=== PATIENT | male | born 1995 | race African-American/Black ===

== ENCOUNTER 2016-06-11 13:01 | Emergency (ER) | payer OTHER ==
[~2016-06-11] VITALS: Ht 167.6 cm; Wt 60.0 kg
[~2016-06-11 13:01] MED LIST: ZOFR4TAB3 SL
[2016-06-11 13:03] VITALS: BP 130/67; PULSE 84; RESP 20; TEMP 98.6; O2SAT 99
--- NOTE | 2016-06-11 13:05 | PD ---
Physical Exam Time Seen by Provider: 13:04 Narrative 21 year old male presents for evaluation of nausea/vomiting which started last night. Seen at triage desk. Awaiting bed placement . Data Data Last Documented VS Vital Signs Date Time Temp Pulse Resp B/P Pulse Ox O2 Delivery O2 Flow Rate FiO2 06/11/16 13:03 98.6 84 20 130/67 99 Room Air [facility] Medical Record Reviewed: Yes Supervised Visit with SHILPA: Yes Mike Burkett Jun 11, 2016 13:05
[2016-06-11] MEDS ORDERED: SODIUM CHLOR 0.9% 1000 ML INJ 1,000 ML IV SCH (13:13)
[2016-06-11 13:15] VITALS: BP 123/81; PULSE 80; RESP 16; O2SAT 97
[2016-06-11] MEDS ORDERED: ONDANSETRON HCL 4 MG/2 ML VIAL IVP ONE (13:15)
--- NOTE | 2016-06-11 13:16 | PD ---
HPI Chief Complaint: GI Complaint Time Seen by Provider: 13:09 Travel History International Travel<30 days: No Contact w/Intl Traveler<30days: No Traveled to known affect area: No History of Present Illness HPI 21-year-old male complains of nausea vomiting. Patient states the symptoms started last night. Patient denies abdominal pain. Patient denies any headache. Patient denies any chest pain or shortness of breath. Patient denies any coughing congestion. Patient denies any dysuria or frequency. Patient denies fever chills. Patient denies any back pain. Patient denies any alcohol or drug abuse. [facility] Social History Alcohol Use: No Tobacco Use: No Substance Use: No Allergies-Medications (Allergen,Severity, Reaction): Coded Allergies: No Known Allergies (Unverified , 06/11/16) Reported Meds & Prescriptions Reported Meds & Active Scripts Active No Active Prescriptions or Reported Medications Review of Systems General / Constitutional: No: Fever Eyes: No: Visual changes HENT: No: Headaches Cardiovascular: No: Chest Pain or Discomfort Respiratory: No: Shortness of Breath Gastrointestinal: Positive: Nausea, Vomiting, No: Abdominal Pain Genitourinary: No: Dysuria Musculoskeletal: No: Pain Skin: No Rash Neurologic: No: Weakness Psychiatric: No: Depression Endocrine: No: Polydipsia Hematologic/Lymphatic: No: Easy Bruising Physical Exam Narrative GENERAL: Well-nourished, well-developed patient. SKIN: Focused skin assessment warm/dry. HEAD: Normocephalic. EYES: No scleral icterus. No injection or drainage. NECK: Supple, trachea midline. No JVD or lymphadenopathy. CARDIOVASCULAR: Regular rate and rhythm without murmurs, gallops, or rubs. RESPIRATORY: Breath sounds equal bilaterally. No accessory muscle use. GASTROINTESTINAL: Abdomen soft, non-tender, nondistended. MUSCULOSKELETAL: No cyanosis, or edema. BACK: Nontender without obvious deformity. No CVA tenderness. Neurologic exam normal. Data Data Last Documented VS Vital Signs Date Time Temp Pulse Resp B/P Pulse Ox O2 Delivery O2 Flow Rate FiO2 06/11/16 13:15 80 16 123/81 97 Room Air 06/11/16 13:03 98.6 Orders Complete Blood Count With Diff (06/11/16 13:13) Comprehensive Metabolic Panel (06/11/16 13:13) Lipase (06/11/16 13:13) Iv Access Insert/Monitor (06/11/16 13:13) Ecg Monitoring (06/11/16 13:13) Oximetry (06/11/16 13:13) Ondansetron Inj (Zofran Inj) (06/11/16 13:15) Sodium Chlor 0.9% 1000 Ml Inj (Ns 1000 M (06/11/16 13:13) Labs Laboratory Tests Test 06/11/16 13:50 White Blood Count 13.8 TH/MM3 Red Blood Count 4.91 MIL/MM3 Hemoglobin 15.8 GM/DL Hematocrit 45.6 % Mean Corpuscular Volume 92.8 FL Mean Corpuscular Hemoglobin 32.2 PG Mean Corpuscular Hemoglobin 34.7 % Concent Red Cell Distribution Width 12.3 % Platelet Count 190 TH/MM3 Mean Platelet Volume 8.8 FL Neutrophils (%) (Auto) 87.2 % Lymphocytes (%) (Auto) 7.5 % Monocytes (%) (Auto) 4.9 % Eosinophils (%) (Auto) 0.1 % Basophils (%) (Auto) 0.3 % Neutrophils # (Auto) 12.0 TH/MM3 Lymphocytes # (Auto) 1.0 TH/MM3 Monocytes # (Auto) 0.7 TH/MM3 Eosinophils # (Auto) 0.0 TH/MM3 Basophils # (Auto) 0.0 TH/MM3 CBC Comment DIFF FINAL Differential Comment Sodium Level 140 MEQ/L Potassium Level 4.7 MEQ/L Chloride Level 108 MEQ/L Carbon Dioxide Level 26.7 MEQ/L Anion Gap 5 MEQ/L Blood Urea Nitrogen 7 MG/DL Creatinine 1.03 MG/DL Estimat Glomerular Filtration 112 ML/MIN Rate Random Glucose 108 MG/DL Calcium Level 9.7 MG/DL Total Bilirubin 1.2 MG/DL Aspartate Amino Transf 27 U/L (AST/SGOT) Alanine Aminotransferase 19 U/L (ALT/SGPT) Alkaline Phosphatase 54 U/L Total Protein 7.4 GM/DL Albumin 4.2 GM/DL Lipase 61 U/L [facility] Medical Decision Making Medical Screen Exam Complete: Yes Emergency Medical Condition: Yes Interpretation(s) 1453 PM. CBC WBC 13.8. 87 neutrophil. CMP within normal limit. Differential Diagnosis Differential diagnosis including gastroenteritis, gastritis, PUD, pancreatitis, cholecystitis, colitis, UTI, pyelonephritis, nephrolithiasis, electrolyte imbalance, dehydration. Narrative Course 21-year-old male with nausea vomiting since last night. Normal saline solution 1 L IV bolus. Zofran 4 mg IV. Diagnosis Primary Impression: Gastroenteritis Patient Instructions: General Instructions Additional Instructions: Take medications as needed for nausea vomiting. Follow-up with personal physician. Return if persistent problem or worse. Med/Other Pt SpecificInfo: Prescription(s) given Scripts Ondansetron Odt (Zofran Odt)4 Mg Tab4 Mg SL Q6HR PRN (Nausea/Vomiting) #10 TAB Prov:Jermaine Dwyer MD 06/11/16 Disposition: 01 DISCHARGE HOME Condition: Stable Jermaine Dwyer MD Jun 11, 2016 13:16
[2016-06-11 14:12] LABS: BASOPHIL % 0.3 % (0.0-2.0); EOSINOPHIL % 0.1 % (0.0-4.0); HEMATOCRIT 45.6 % (39.0-51.0); HEMO FLAGS DIFF FINAL; LYMPH % 7.5 % (9.0-44.0); MEAN CELL VOLUME 92.8 FL (80.0-100.0); MEAN CORPUSCULAR HEMOGLOBIN 32.2 PG (27.0-34.0); MEAN CORPUSCULAR HGB CONC 34.7 % (32.0-36.0); MONO % 4.9 % (0.0-8.0); NEUT % 87.2 % (16.0-70.0); PLATELET COUNT 190 TH/MM3 (150-450); RED BLOOD COUNT 4.91 MIL/MM3 (4.50-5.90); RED CELL DISTRIBUTION WIDTH 12.3 % (11.6-17.2); WHITE BLOOD COUNT 13.8 TH/MM3 (4.0-11.0)
[2016-06-11 14:36] LABS: ALKALINE PHOSPHATASE 54 U/L (45-117); TOTAL BILIRUBIN ADULT 1.2 MG/DL (0.2-1.0)
[2016-06-11 14:48] LABS: ALT (GPT) 19 U/L (9-52); ANION GAP 5 MEQ/L (5-15); AST (GOT) 27 U/L (15-39); BICARBONATE 26.7 MEQ/L (21.0-32.0); BLOOD UREA NITROGEN 7 MG/DL (7-18); CHLORIDE 108 MEQ/L (98-107); GLOMERULAR FILTRATION RATE 112 ML/MIN (>89); SODIUM (NA) 140 MEQ/L (136-145)
[2016-06-11 14:50] LABS: POTASSIUM 4.7 MEQ/L (3.5-5.1)
[2016-06-11] MEDS ORDERED: ZOFR4TAB3 SL (14:56)
== END 2016-06-11 15:21 | disposition home or self-care (01) ==
LOC: NEPD 13:01
DX: K52.9 Noninfective gastroenteritis and colitis, unspecified (principal)
CPT/HCPCS: 80053; 83690; 85025; 96361; 96374; 99283; J2405; J7030

== ENCOUNTER 2016-06-30 19:56 | Emergency (ER) | payer OTHER ==
[~2016-06-30] VITALS: Ht 167.6 cm; Wt 59.0 kg
[2016-06-30 20:00] VITALS: BP 123/66; PULSE 86; RESP 16; TEMP 98.4; O2SAT 99
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
[2016-07-01] MEDS ORDERED: IBUP800T23 PO (12:48)
[2016-07-01] MEDS ORDERED: CEPH-460 PO (12:48)
== END 2016-07-01 01:00 | disposition left against medical advice (07) ==
LOC: NED 19:56
DX: S81.822A Laceration with foreign body, left lower leg, initial encounter (principal); S80.211A Abrasion, right knee, initial encounter
CPT/HCPCS: 99282

== ENCOUNTER 2016-07-01 11:04 | Emergency (ER) | payer OTHER ==
[~2016-07-01] VITALS: Ht 167.6 cm; Wt 59.1 kg
[2016-07-01 11:05] VITALS: BP 127/76; PULSE 68; RESP 16; TEMP 97.7; O2SAT 99
[2016-07-01] MEDS ORDERED: LIDOCAINE 1%/EPINEPHrine 1:100,000 SOLN 20 ML VIAL INFIL ONE (12:45)
[2016-07-01] MEDS ORDERED: IBUP800T23 PO (12:48)
[2016-07-01] MEDS ORDERED: CEPH-460 PO (12:48)
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
--- NOTE | 2016-07-01 13:36 | RADRPT ---
EXAM DATE/TIME: 07/01/2016 12:47 [place] COMPARISON: No previous studies available for comparison. INDICATIONS : MCA pain with laceration to patella area right knee. MEDICAL HISTORY : None. SURGICAL HISTORY : None. ENCOUNTER: Initial ACUITY: 1 day PAIN SCORE: 9/10 LOCATION: Right knee FINDINGS: Four view examination of the right knee demonstrates no evidence of fracture or dislocation. Bony mi neralization is normal. The articular surfaces are intact. The suprapatellar soft tissues have a no rmal configuration. CONCLUSION: Unremarkable examination of the right knee. Kwan Cole MD on July 01, 2016 at 13:33 Board Certified Radiologist. This report was verified electronically.
== END 2016-07-01 14:03 | disposition left against medical advice (07) ==
LOC: NEPK 11:04
DX: S89.91XA Unspecified injury of right lower leg, initial encounter (principal); S81.812A Laceration without foreign body, left lower leg, initial encounter; V29.40XA Motorcycle driver injured in collision with unspecified motor vehicles in traffic accident, initial encounter; Y93.I9 Activity, other involving external motion
CPT/HCPCS: 12002; 73564; 99284; E0113